=== PATIENT | male | born 1950 | race Two or more races ===

== ENCOUNTER 2020-10-17 01:41 | Inpatient (IN) | payer OTHER, MEDICAID ==
[~2020-10-17] VITALS: Ht 175.3 cm; Wt 118.1 kg
[2020-10-17] VITALS (37 sets, daily range): BP systolic 115–187; BP diastolic 47–101
[2020-10-17] MEDS ORDERED: ADENOSINE 6 MG/2 ML INJ IV ONE ×4 (01:57→02:05)
[2020-10-17] MEDS ORDERED: SODIUM CHLORIDE 0.9% 1,000 ML IV ONE (02:00)
[2020-10-17] MEDS ORDERED: METOPROLOL TARTRATE 1MG/1ML-5ML VIAL IV ONE ×4 (02:09→02:37)
[2020-10-17 02:38] LABS: Basophils # (auto) 0 10 ^3/uL (0-0.2); Basophils % (auto) 0.5 % (0.0-2.0); Eosinophils # (auto) 0.1 10 ^3/uL (0-0.8); Eosinophils % (auto) 2.1 % (0.0-7.0); Hematocrit 45.2 % (41.0-53.0); Hemoglobin 15.5 g/dL (13.5-17.5); Lymphocytes # (auto) 2.1 10 ^3/uL (0.4-5.4); Lymphocytes % (auto) 32.6 % (10.0-50.0); Mean Corpuscular Hemoglobin 31.9 pg (28.0-32.0); Mean Corpuscular Hgb Conc. 34.4 g/dL (32.0-36.0); Mean Corpuscular Volume 92.9 fL (80.0-100.0); Monocytes # (auto) 0.3 10 ^3/uL (0-1.3); Monocytes % (auto) 3.9 % (0.0-12.0); Neutrophils % (auto) 60.9 % (37.0-80.0); Nucleated Red Blood Cells % 0.1 %; Red Blood Cells 4.87 10^6/uL (4.5-5.90); Red Cell Distribution Width 13.8 % (11.8-14.3); White Blood Cell 6.5 10^3/uL (4.4-10.8)
[2020-10-17] MEDS ORDERED: dilTIAZem HCL 50 MG/10 ML VIAL IV ONE ×2 (02:44→03:58)
[2020-10-17] MEDS ORDERED: dilTIAZem 25 MG/5 ML VIAL IV ONE (02:48)
[2020-10-17 02:52] LABS: INR 1.08 (0.9-1.15)
[2020-10-17 03:05] LABS: Alanine Aminotransferase 27 U/L (16-61); Albumin 2.9 g/dL (3.4-5.0); Anion Gap 6 (5-15); Aspartate Aminotransferase 12 U/L (15-37); BUN/Creatinine Ratio 16.5; Blood Urea Nitrogen 20 mg/dL (7-18); Calcium 8.2 mg/dL (8.5-10.1); Carbon Dioxide 30 mmol/L (21-32); Chloride 105 mmol/L (98-107); GFR African American 77 mL/min; GFR Non-African American 63 mL/min; Glucose 242 mg/dL (74-106); Magnesium 1.5 mg/dL (1.6-2.6); Potassium 3.4 mmol/L (3.5-5.1); Sodium 141 mmol/L (136-145)
[2020-10-17 03:10] LABS: Alkaline Phosphatase 105 U/L (45-117); Bilirubin, Total 0.4 mg/dL (0.2-1.0); Total Protein 6.6 g/dL (6.4-8.2)
[2020-10-17] MEDS ORDERED: dilTIAZem 125mg/125ml BAG KIT 125 ML IV ONE (03:59)
[2020-10-17] MEDS: dilTIAZem 125mg/125ml BAG KIT 125 ML IV SCH (04:09)
[2020-10-17] MEDS ORDERED: MORPHINE SULFATE INJECTION 2 MG/ML SYRG IV PRN (04:30)
[2020-10-17] MEDS ORDERED: ONDANSETRON HCL 4 MG/2 ML VIAL IV PRN (04:30)
[2020-10-17] MEDS ORDERED: TEMAZEPAM 15 MG CAP PO PRN (04:30)
[2020-10-17] MEDS ORDERED: DEXTROSE (50%) 50ML SYRG IV PRN (04:30)
[2020-10-17] MEDS ORDERED: NITROGLYCERIN 0.4 MG SL TAB SL PRN (04:30)
[2020-10-17] MEDS ORDERED: IOHEXOL 350 MG/ML 100ML IJ ONE (04:32)
[2020-10-17] MEDS: POTASSIUM CHL 20MEQ/100ML 100 ML IV SCH ×2 (05:30→08:42)
[2020-10-17] MEDS: MAGNESIUM SULFATE 1GM/100ML 100 ML IV SCH ×2 (05:30→06:34)
[2020-10-17] MEDS ORDERED: LABETALOL HCL 5 MG/ML 4ML SYRINGE IV ONE (06:30)
[2020-10-17] MEDS ORDERED: ALBUTEROL SULF 2.5 MG/0.5ML(0.5%) NEB SOLN NEB PRN (07:30)
[2020-10-17] MEDS: ACCU-CHEK COMFORT CURVE STRIP VI SCH ×4 (07:34→21:28)
[2020-10-17] MEDS: InsuLIN REG 1unit/0.01ml Soln (100units/ml) SC SCH ×4 (07:35→21:36)
[2020-10-17] MEDS ORDERED: cefTRIAXone 1GM/50ML D5W 50 ML IV SCH (09:00)
[2020-10-17] MEDS ORDERED: VALSARTAN 80 MG TAB PO SCH (10:00)
[2020-10-17] MEDS ORDERED: AZITHROMYCIN 500MG/ 250ML 250 ML IV SCH (10:00)
[2020-10-17] MEDS ORDERED: DexAMETHasone SOD PHOS 10MG/1ML VIAL INJ IV SCH (10:00)
[2020-10-17] MEDS ORDERED: TRIAMTERENE/HCTZ 37.5/25 MG CAP/TAB PO SCH (10:00)
[2020-10-17] MEDS ORDERED: ENOXAPARIN SOD 40 MG/0.4 ML SYRINGE SC SCH (10:00)
[2020-10-17] MEDS: METOPROLOL TARTRATE 50 MG TAB PO SCH ×2 (10:24→21:02)
[2020-10-17] MEDS: ASPirin 81 mg TAB PO SCH (10:24)
[2020-10-17] MEDS: FAMOTIDINE 20 MG TAB PO SCH ×2 (10:24→21:03)
[2020-10-17] MEDS ORDERED: ASPI-543 PO (10:49)
[2020-10-17] MEDS ORDERED: SIMV-13 PO (10:49)
[2020-10-17] MEDS ORDERED: METF-370 PO (10:49)
[2020-10-17] MEDS ORDERED: METO-158 PO (10:49)
[2020-10-17] MEDS ORDERED: GABA100C9 PO (10:49)
[2020-10-17] MEDS ORDERED: ALBU2TAB4 IN (10:49)
[2020-10-17] MEDS ORDERED: VALS320T15 PO (10:49)
[2020-10-17] MEDS ORDERED: ALOG1TAB2 PO (10:49)
[2020-10-17] MEDS: PIPERACILLIN-TAZO 4.5GM 100 ML IV SCH ×2 (14:55→21:01)
[2020-10-17] MEDS: ATORVASTATIN 20 MG TAB PO SCH (21:02)
[2020-10-17] MEDS: APIXABAN 5 MG TAB PO SCH (21:02)
[2020-10-17] MEDS: INSULIN LANTUS (GLARGINE) 1 /0.01ml (100units/ml) SC SCH (21:29)
[2020-10-18] VITALS (16 sets, daily range): BP systolic 115–159; BP diastolic 68–92
[2020-10-18 05:07] LABS: Basophils # (auto) 0 10 ^3/uL (0-0.2); Basophils % (auto) 0.3 % (0.0-2.0); Eosinophils # (auto) 0 10 ^3/uL (0-0.8); Eosinophils % (auto) 0.1 % (0.0-7.0); Hematocrit 41.6 % (41.0-53.0); Hemoglobin 14.6 g/dL (13.5-17.5); Lymphocytes # (auto) 0.8 10 ^3/uL (0.4-5.4); Lymphocytes % (auto) 5.3 % (10.0-50.0); Mean Corpuscular Hemoglobin 32.5 pg (28.0-32.0); Mean Corpuscular Hgb Conc. 35.1 g/dL (32.0-36.0); Mean Corpuscular Volume 92.4 fL (80.0-100.0); Monocytes # (auto) 0.7 10 ^3/uL (0-1.3); Monocytes % (auto) 4.6 % (0.0-12.0); Neutrophils # (auto) 13.4 10 ^3/uL (1.6-8.6); Neutrophils % (auto) 89.7 % (37.0-80.0); Red Cell Distribution Width 13.8 % (11.8-14.3)
[2020-10-18 05:27] LABS: BUN/Creatinine Ratio 21.3; Potassium 4.2 mmol/L (3.5-5.1)
[2020-10-18] MEDS: PIPERACILLIN-TAZO 4.5GM 100 ML IV SCH ×3 (06:22→21:53)
[2020-10-18] MEDS: ACCU-CHEK COMFORT CURVE STRIP VI SCH ×4 (06:27→21:54)
[2020-10-18] MEDS: InsuLIN REG 1unit/0.01ml Soln (100units/ml) SC SCH ×4 (06:28→22:29)
[2020-10-18] MEDS: dilTIAZem 125mg/125ml BAG KIT 125 ML IV SCH (07:36)
[2020-10-18] MEDS: METOPROLOL TARTRATE 50 MG TAB PO SCH ×2 (08:53→22:30)
[2020-10-18] MEDS: FAMOTIDINE 20 MG TAB PO SCH (08:53)
[2020-10-18] MEDS: ASPirin 81 mg TAB PO SCH (08:53)
[2020-10-18] MEDS: APIXABAN 5 MG TAB PO SCH ×2 (11:12→21:53)
[2020-10-18] MEDS: ACETAMINOPHEN 325 MG TAB PO PRN (17:13)
[2020-10-18] MEDS: ATORVASTATIN 20 MG TAB PO SCH (21:53)
[2020-10-18] MEDS: INSULIN LANTUS (GLARGINE) 1 /0.01ml (100units/ml) SC SCH (22:28)
[2020-10-19 05:00] VITALS: BP 118/81
[2020-10-19] MEDS: PIPERACILLIN-TAZO 4.5GM 100 ML IV SCH ×2 (06:09→17:52)
[2020-10-19] MEDS: ACCU-CHEK COMFORT CURVE STRIP VI SCH ×4 (06:51→22:23)
[2020-10-19] MEDS: InsuLIN REG 1unit/0.01ml Soln (100units/ml) SC SCH ×4 (06:55→22:24)
[2020-10-19 09:00] VITALS: BP 134/67
[2020-10-19] MEDS: ASPirin 81 mg TAB PO SCH (10:13)
[2020-10-19] MEDS: APIXABAN 5 MG TAB PO SCH ×2 (10:14→22:22)
[2020-10-19] MEDS: METOPROLOL TARTRATE 50 MG TAB PO SCH ×2 (10:14→22:23)
[2020-10-19] MEDS ORDERED: DOXYCYCLINE 100 MG TAB/CAP PO ONE (10:15)
[2020-10-19 13:00] VITALS: BP 139/78
[2020-10-19 16:26] VITALS: BP 138/94
[2020-10-19] MEDS: ACETAMINOPHEN 325 MG TAB PO PRN (20:06)
[2020-10-19 22:00] VITALS: BP 167/79
[2020-10-19] MEDS: ATORVASTATIN 20 MG TAB PO SCH (22:22)
[2020-10-19] MEDS: DOXYCYCLINE 100 MG TAB/CAP PO SCH (22:22)
[2020-10-19] MEDS: MUPIROCIN 2% OINT 15gm or 22gm EACHNOSTRI SCH (22:22)
[2020-10-19] MEDS: INSULIN LANTUS (GLARGINE) 1 /0.01ml (100units/ml) SC SCH (22:24)
[2020-10-19] MEDS: hydrALAZINE HCL 20 MG/ML VL IV PRN (22:42)
[2020-10-20] MEDS: HYDROcodone-ACET 5/325MG TAB PO PRN (02:31)
[2020-10-20 05:00] VITALS: BP 140/71
[2020-10-20] MEDS: ACCU-CHEK COMFORT CURVE STRIP VI SCH ×4 (06:30→22:00)
[2020-10-20] MEDS: InsuLIN REG 1unit/0.01ml Soln (100units/ml) SC SCH ×4 (06:33→22:37)
[2020-10-20 07:32] VITALS: BP 140/71
[2020-10-20 09:00] VITALS: BP 138/63
[2020-10-20] MEDS: ASPirin 81 mg TAB PO SCH (10:13)
[2020-10-20] MEDS: METOPROLOL TARTRATE 50 MG TAB PO SCH ×2 (10:13→22:34)
[2020-10-20] MEDS: DOXYCYCLINE 100 MG TAB/CAP PO SCH ×2 (10:13→22:35)
[2020-10-20] MEDS: APIXABAN 5 MG TAB PO SCH ×2 (10:13→22:36)
[2020-10-20] MEDS: MUPIROCIN 2% OINT 15gm or 22gm EACHNOSTRI SCH ×2 (11:38→22:36)
[2020-10-20 13:00] VITALS: BP 143/73
[2020-10-20] MEDS ORDERED: AZITHROMYCIN 250 MG TAB PO ONE (15:45)
[2020-10-20 17:00] VITALS: BP 144/83
[2020-10-20 21:48] VITALS: BP 140/98
[2020-10-20] MEDS: ATORVASTATIN 20 MG TAB PO SCH (22:34)
[2020-10-20] MEDS: INSULIN LANTUS (GLARGINE) 1 /0.01ml (100units/ml) SC SCH (22:37)
[2020-10-21] MEDS: HYDROcodone-ACET 5/325MG TAB PO PRN ×2 (00:43→23:11)
[2020-10-21] MEDS: hydrALAZINE HCL 20 MG/ML VL IV PRN (04:15)
[2020-10-21 04:40] VITALS: BP 160/75
[2020-10-21] MEDS: ACCU-CHEK COMFORT CURVE STRIP VI SCH ×4 (06:12→22:19)
[2020-10-21] MEDS: InsuLIN REG 1unit/0.01ml Soln (100units/ml) SC SCH ×4 (06:13→22:18)
[2020-10-21 07:28] LABS: Basophils # (auto) 0 10 ^3/uL (0-0.2); Basophils % (auto) 0.5 % (0.0-2.0); Eosinophils # (auto) 0.6 10 ^3/uL (0-0.8); Hemoglobin 15.9 g/dL (13.5-17.5); Lymphocytes # (auto) 1.8 10 ^3/uL (0.4-5.4); Lymphocytes % (auto) 23.3 % (10.0-50.0); Mean Corpuscular Hemoglobin 32.5 pg (28.0-32.0); Mean Corpuscular Hgb Conc. 35.3 g/dL (32.0-36.0); Monocytes # (auto) 0.7 10 ^3/uL (0-1.3); Monocytes % (auto) 8.7 % (0.0-12.0); Neutrophils # (auto) 4.5 10 ^3/uL (1.6-8.6); Neutrophils % (auto) 59.5 % (37.0-80.0); Nucleated Red Blood Cells % 0.1 %; Red Blood Cells 4.89 10^6/uL (4.5-5.90); Red Cell Distribution Width 13.7 % (11.8-14.3); White Blood Cell 7.5 10^3/uL (4.4-10.8)
[2020-10-21 07:54] LABS: Potassium 3.6 mmol/L (3.5-5.1)
[2020-10-21 08:02] LABS: Albumin 2.9 g/dL (3.4-5.0); BUN/Creatinine Ratio 25.8; Bilirubin, Total 0.4 mg/dL (0.2-1.0); Calcium 8.9 mg/dL (8.5-10.1); Total Protein 6.5 g/dL (6.4-8.2)
[2020-10-21 09:00] VITALS: BP 136/82
[2020-10-21] MEDS ORDERED: AZITHROMYCIN 250 MG TAB PO SCH (10:00)
[2020-10-21] MEDS: DOXYCYCLINE 100 MG TAB/CAP PO SCH (10:36)
[2020-10-21] MEDS: ASPirin 81 mg TAB PO SCH (10:36)
[2020-10-21] MEDS: APIXABAN 5 MG TAB PO SCH ×2 (10:36→22:03)
[2020-10-21] MEDS: MUPIROCIN 2% OINT 15gm or 22gm EACHNOSTRI SCH ×2 (10:36→22:00)
[2020-10-21] MEDS: METOPROLOL TARTRATE 50 MG TAB PO SCH ×2 (10:37→22:03)
[2020-10-21 13:00] VITALS: BP 149/112
[2020-10-21 17:00] VITALS: BP 134/78
[2020-10-21] MEDS: ATORVASTATIN 20 MG TAB PO SCH (22:03)
[2020-10-21] MEDS: AMIODARONE HCL 200 MG TAB PO SCH (22:04)
[2020-10-21] MEDS: INSULIN LANTUS (GLARGINE) 1 /0.01ml (100units/ml) SC SCH (22:18)
[2020-10-21 23:00] VITALS: BP 134/85
[2020-10-22 05:00] VITALS: BP 148/73
[2020-10-22] MEDS: InsuLIN REG 1unit/0.01ml Soln (100units/ml) SC SCH ×2 (06:36→12:20)
[2020-10-22] MEDS: ACCU-CHEK COMFORT CURVE STRIP VI SCH ×2 (06:42→12:18)
[2020-10-22 06:54] LABS: Basophils # (auto) 0 10 ^3/uL (0-0.2); Basophils % (auto) 0.4 % (0.0-2.0); Eosinophils # (auto) 0.5 10 ^3/uL (0-0.8); Eosinophils % (auto) 5.8 % (0.0-7.0); Hematocrit 43.3 % (41.0-53.0); Hemoglobin 15.4 g/dL (13.5-17.5); Lymphocytes # (auto) 1.9 10 ^3/uL (0.4-5.4); Lymphocytes % (auto) 21.9 % (10.0-50.0); Mean Corpuscular Hemoglobin 32.6 pg (28.0-32.0); Mean Corpuscular Hgb Conc. 35.6 g/dL (32.0-36.0); Mean Corpuscular Volume 91.6 fL (80.0-100.0); Monocytes # (auto) 0.7 10 ^3/uL (0-1.3); Monocytes % (auto) 7.7 % (0.0-12.0); Neutrophils # (auto) 5.5 10 ^3/uL (1.6-8.6); Neutrophils % (auto) 64.2 % (37.0-80.0); Nucleated Red Blood Cells % 0.2 %; Red Blood Cells 4.73 10^6/uL (4.5-5.90); Red Cell Distribution Width 13.3 % (11.8-14.3); White Blood Cell 8.5 10^3/uL (4.4-10.8)
[2020-10-22 07:16] LABS: Potassium 3.9 mmol/L (3.5-5.1)
[2020-10-22 07:21] LABS: BUN/Creatinine Ratio 28.4; Calcium 8.7 mg/dL (8.5-10.1)
[2020-10-22 09:00] VITALS: BP 130/64
[2020-10-22] MEDS ORDERED: DOXYCYCLINE 100 MG TAB/CAP PO SCH (10:15)
[2020-10-22] MEDS ORDERED: DOX100T PO (10:19)
[2020-10-22] MEDS ORDERED: AMIO200T4 PO (10:19)
[2020-10-22] MEDS ORDERED: ASPI1CHW15 PO (10:19)
[2020-10-22] MEDS ORDERED: APIX5TAB PO (10:19)
[2020-10-22] MEDS: ASPirin 81 mg TAB PO SCH (10:24)
[2020-10-22] MEDS: AMIODARONE HCL 200 MG TAB PO SCH (10:24)
[2020-10-22] MEDS: APIXABAN 5 MG TAB PO SCH (10:24)
[2020-10-22] MEDS: METOPROLOL TARTRATE 50 MG TAB PO SCH (10:25)
[2020-10-22] MEDS: MUPIROCIN 2% OINT 15gm or 22gm EACHNOSTRI SCH (12:04)
[2020-10-22 13:14] VITALS: BP 126/76
== END 2020-10-22 14:35 | disposition home or self-care (01) | DRG 177 ==
LOC: EDBD 01:41 → ER 01:44 → TELE 04:30 → DOU IN ICU 09:07 → TELE-CENTR 10-18 12:03
PROVIDERS: ADMIT Nurse Practitioner; ATTEND Internal Medicine
DX: J69.0 Pneumonitis due to inhalation of food and vomit (principal); J96.01 Acute respiratory failure with hypoxia; N17.0 Acute kidney failure with tubular necrosis; I47.1 Supraventricular tachycardia; E44.0 Moderate protein-calorie malnutrition; D68.69 Other thrombophilia; E11.22 Type 2 diabetes mellitus with diabetic chronic kidney disease; E66.01 Morbid (severe) obesity due to excess calories; E87.6 Hypokalemia; I48.0 Paroxysmal atrial fibrillation; Z80.0 Family history of malignant neoplasm of digestive organs; N18.9 Chronic kidney disease, unspecified; E78.5 Hyperlipidemia, unspecified; Z20.822 Contact with and (suspected) exposure to COVID-19; Z88.5 Allergy status to narcotic agent; B95.62 Methicillin resistant Staphylococcus aureus infection as the cause of diseases classified elsewhere; Z68.38 Body mass index [BMI] 38.0-38.9, adult; E87.8 Other disorders of electrolyte and fluid balance, not elsewhere classified; E11.21 Type 2 diabetes mellitus with diabetic nephropathy
CPT/HCPCS: 36415; 36600; 71045; 71275; 80048; 80053; 82805; 82962; 83036; 83605; 83735; 84443; 84484; 85025; 85049; 85379; 85610; 87045; 87081; 87426; 87427; 93005; 93306; 96361; 96365; 96375; 99291; G0378; J0153; J0696; J1100; J1815; J2543; J3480; J3490

== ENCOUNTER 2021-02-08 22:58 | Inpatient (IN) | payer OTHER, MEDICAID ==
[~2021-02-08] VITALS: Ht 175.3 cm; Wt 108.9 kg
[~2021-02-08 22:58] MED LIST: ALBU2TAB4 IN; ALOG1TAB2 PO; AMIO200T4 PO; APIX5TAB PO; ASPI-543 PO; ASPI1CHW15 PO; DOX100T PO; GABA100C9 PO; METF-370 PO; METO-158 PO; SIMV-13 PO; VALS320T15 PO
[2021-02-09 00:02] LABS: Basophils # (auto) 0.1 10 ^3/uL (0-0.2); Basophils % (auto) 0.9 % (0.0-2.0); Eosinophils # (auto) 0.7 10 ^3/uL (0-0.8); Eosinophils % (auto) 6.7 % (0.0-7.0); Hematocrit 45.8 % (41.0-53.0); Hemoglobin 15.7 g/dL (13.5-17.5); Lymphocytes # (auto) 2.7 10 ^3/uL (0.4-5.4); Mean Corpuscular Hemoglobin 32.5 pg (28.0-32.0); Mean Corpuscular Hgb Conc. 34.3 g/dL (32.0-36.0); Mean Corpuscular Volume 94.9 fL (80.0-100.0); Monocytes # (auto) 0.7 10 ^3/uL (0-1.3); Monocytes % (auto) 7.5 % (0.0-12.0); Neutrophils # (auto) 5.8 10 ^3/uL (1.6-8.6); Neutrophils % (auto) 57.9 % (37.0-80.0); Nucleated Red Blood Cells % 0.1 %; Red Blood Cells 4.83 10^6/uL (4.5-5.90); Red Cell Distribution Width 14.3 % (11.8-14.3); White Blood Cell 9.9 10^3/uL (4.4-10.8)
[2021-02-09 00:20] LABS: Albumin 3.3 g/dL (3.4-5.0); Anion Gap 8 (5-15); BUN/Creatinine Ratio 17.6; Blood Urea Nitrogen 24 mg/dL (7-18); Calcium 9.6 mg/dL (8.5-10.1); Carbon Dioxide 28 mmol/L (21-32); Chloride 104 mmol/L (98-107); GFR African American 67 mL/min; GFR Non-African American 55 mL/min; Glucose 253 mg/dL (74-106); Sodium 140 mmol/L (136-145)
[2021-02-09 00:25] LABS: Alanine Aminotransferase 34 U/L (16-61); Alkaline Phosphatase 108 U/L (45-117); Aspartate Aminotransferase 14 U/L (15-37); Bilirubin, Total 0.4 mg/dL (0.2-1.0); Total Protein 7.5 g/dL (6.4-8.2)
[2021-02-09] MEDS: METOPROLOL TARTRATE 1MG/1ML-5ML VIAL IV SCH ×3 (02:15→02:54)
[2021-02-09] MEDS ORDERED: SODIUM CHLORIDE 0.9% 1,000 ML IV ONE (02:15)
[2021-02-09] MEDS ORDERED: DEXTROSE (50%) 50ML SYRG IV PRN (03:15)
[2021-02-09] MEDS ORDERED: SOD CHL 0.45% 1,000 ML IV ONE (03:15)
[2021-02-09] MEDS ORDERED: DOCUSATE SOD 100 MG CAP PO PRN (03:15)
[2021-02-09] MEDS ORDERED: ONDANSETRON HCL 4 MG/2 ML VIAL IV PRN (03:15)
[2021-02-09] MEDS ORDERED: ACETAMINOPHEN 325 MG TAB PO PRN (03:15)
[2021-02-09] MEDS ORDERED: METOPROLOL TARTRATE 25 MG TAB PO ONE (03:45)
[2021-02-09] MEDS ORDERED: MORPHINE SULFATE INJECTION 2 MG/ML SYRG IV PRN (05:30)
[2021-02-09] MEDS ORDERED: NITROGLYCERIN 0.4 MG SL TAB SL PRN (05:30)
[2021-02-09] MEDS ORDERED: dilTIAZem HCL 60 MG TAB PO SCH (06:00)
[2021-02-09 06:03] LABS: Basophils # (auto) 0.1 10 ^3/uL (0-0.2); Basophils % (auto) 0.9 % (0.0-2.0); Eosinophils # (auto) 0.5 10 ^3/uL (0-0.8); Eosinophils % (auto) 5.8 % (0.0-7.0); Hematocrit 41.9 % (41.0-53.0); Hemoglobin 14.3 g/dL (13.5-17.5); Lymphocytes # (auto) 2.3 10 ^3/uL (0.4-5.4); Lymphocytes % (auto) 28.5 % (10.0-50.0); Mean Corpuscular Hemoglobin 32.4 pg (28.0-32.0); Mean Corpuscular Hgb Conc. 34.1 g/dL (32.0-36.0); Mean Corpuscular Volume 95.1 fL (80.0-100.0); Monocytes # (auto) 0.6 10 ^3/uL (0-1.3); Monocytes % (auto) 7.7 % (0.0-12.0); Neutrophils # (auto) 4.6 10 ^3/uL (1.6-8.6); Neutrophils % (auto) 57.1 % (37.0-80.0); Nucleated Red Blood Cells % 0.1 %; Red Blood Cells 4.41 10^6/uL (4.5-5.90); Red Cell Distribution Width 13.9 % (11.8-14.3); White Blood Cell 8.1 10^3/uL (4.4-10.8)
[2021-02-09 06:25] LABS: Albumin 2.8 g/dL (3.4-5.0); Calcium 8.8 mg/dL (8.5-10.1)
[2021-02-09 06:28] LABS: BUN/Creatinine Ratio 21.1; Bilirubin, Total 0.4 mg/dL (0.2-1.0); Total Protein 6.4 g/dL (6.4-8.2)
[2021-02-09] MEDS ORDERED: ACCU-CHEK COMFORT CURVE STRIP VI SCH (07:00)
[2021-02-09] MEDS ORDERED: InsuLIN REG 1unit/0.01ml Soln (100units/ml) SC SCH ×2 (07:00→22:00)
[2021-02-09 07:25] VITALS: BP 115/94
[2021-02-09 07:30] LABS: Urine Bacteria NONE SEEN /hpf (None Seen); Urine Blood Negative /uL (Negative); Urine Hyaline Cast FEW /lpf (0 - 2); Urine Mucus FEW (None Seen); Urine Specific Gravity 1.024 (1.001-1.035); Urine WBC 2 /hpf (0 - 3)
[2021-02-09] MEDS ORDERED: METOPROLOL TARTRATE 25 MG TAB PO SCH (10:00)
[2021-02-09] MEDS ORDERED: ASPirin 81 mg TAB PO SCH (10:00)
[2021-02-09] MEDS ORDERED: MULTIPLE VITAMIN TAB PO SCH (10:00)
[2021-02-09] MEDS ORDERED: ASCORBIC ACID 500 MG TAB PO SCH (10:00)
[2021-02-09] MEDS ORDERED: ZINC SULFATE 220mg CAP or TAB PO SCH (10:00)
[2021-02-09] MEDS ORDERED: ATORVASTATIN 20 MG TAB PO SCH (22:00)
== END 2021-02-09 09:30 | disposition left against medical advice (07) | DRG 313 ==
LOC: ER 22:58 → TELE 02-09 06:26
PROVIDERS: ADMIT Nurse Practitioner Family; ATTEND Nurse Practitioner Family
DX: R07.89 Other chest pain (principal); I49.9 Cardiac arrhythmia, unspecified; I48.0 Paroxysmal atrial fibrillation; E11.9 Type 2 diabetes mellitus without complications; E78.5 Hyperlipidemia, unspecified; I11.9 Hypertensive heart disease without heart failure; Z53.29 Procedure and treatment not carried out because of patient's decision for other reasons; Z80.0 Family history of malignant neoplasm of digestive organs; G62.9 Polyneuropathy, unspecified; Z88.5 Allergy status to narcotic agent; Z20.822 Contact with and (suspected) exposure to COVID-19; R00.2 Palpitations
CPT/HCPCS: 36415; 71045; 80053; 81001; 83880; 84484; 85025; 87426; 93005; 96361; 96374; 99291; G0378; J1815

== ENCOUNTER 2021-03-08 11:43 | Inpatient (IN) | payer OTHER, MEDICAID ==
[~2021-03-08] VITALS: Ht 177.8 cm; Wt 120.2 kg
[2021-03-08] MEDS ORDERED: SODIUM CHLORIDE 0.9% 500 ML IV ONE (12:15)
[2021-03-08 13:17] LABS: Basophils # (auto) 0.1 10 ^3/uL (0-0.2); Basophils % (auto) 0.6 % (0.0-2.0); Eosinophils # (auto) 0.1 10 ^3/uL (0-0.8); Hematocrit 42.3 % (41.0-53.0); Hemoglobin 14.2 g/dL (13.5-17.5); Lymphocytes # (auto) 1.4 10 ^3/uL (0.4-5.4); Lymphocytes % (auto) 15.3 % (10.0-50.0); Mean Corpuscular Hemoglobin 32.1 pg (28.0-32.0); Mean Corpuscular Hgb Conc. 33.7 g/dL (32.0-36.0); Mean Corpuscular Volume 95.4 fL (80.0-100.0); Monocytes # (auto) 0.4 10 ^3/uL (0-1.3); Monocytes % (auto) 4.3 % (0.0-12.0); Neutrophils % (auto) 78.8 % (37.0-80.0); Nucleated Red Blood Cells % 0.1 %; Red Blood Cells 4.43 10^6/uL (4.5-5.90); Red Cell Distribution Width 13.8 % (11.8-14.3); White Blood Cell 8.8 10^3/uL (4.4-10.8)
[2021-03-08 13:28] LABS: Albumin 2.8 g/dL (3.4-5.0); Calcium 8.5 mg/dL (8.5-10.1); Magnesium 1.8 mg/dL (1.6-2.6); Potassium 3.9 mmol/L (3.5-5.1)
[2021-03-08 13:35] LABS: Bilirubin, Total 0.7 mg/dL (0.2-1.0); Total Protein 6.6 g/dL (6.4-8.2)
[2021-03-08] MEDS ORDERED: NOREPINEPHRINE 8 MG/250ML KIT 250 ML IV SCH (13:45)
[2021-03-08] MEDS ORDERED: NOREPINEPHRINE 8 MG/250ML KIT 250 ML IV ONE (13:49)
[2021-03-08] MEDS ORDERED: ACETAMINOPHEN 325 MG TAB PO PRN (16:00)
[2021-03-08] MEDS ORDERED: DOCUSATE SOD 100 MG CAP PO PRN (16:00)
[2021-03-08] MEDS ORDERED: DEXTROSE (50%) 50ML SYRG IV PRN (16:00)
[2021-03-08] MEDS ORDERED: METOCLOPRAMIDE HCL 5MG/ml INJ 2ml VIAL IV PRN (16:00)
[2021-03-08] MEDS: ACCU-CHEK COMFORT CURVE STRIP VI SCH ×2 (18:53→23:25)
[2021-03-08] MEDS: InsuLIN REG 1unit/0.01ml Soln (100units/ml) SC SCH ×2 (19:01→23:24)
[2021-03-09] MEDS: InsuLIN REG 1unit/0.01ml Soln (100units/ml) SC SCH ×4 (05:52→23:14)
[2021-03-09] MEDS: ACCU-CHEK COMFORT CURVE STRIP VI SCH ×3 (05:55→17:52)
[2021-03-09 11:34] LABS: Urine Bacteria NONE SEEN /hpf (None Seen); Urine Blood Negative /uL (Negative); Urine Hyaline Cast FEW /lpf (0 - 2); Urine Specific Gravity 1.011 (1.001-1.035); Urine WBC 2 /hpf (0 - 3)
[2021-03-09 11:36] LABS: Protein, Urine 19.4 mg/dL (0.0-11.9)
[2021-03-09 11:37] LABS: Amphetamine Screen, Urine NEGATIVE (NEGATIVE); Barbiturate Scree,Urine NEGATIVE (NEGATIVE); Benzodiazephine Screen, Urine NEGATIVE (NEGATIVE); Cannabinoid Screen, Urine NEGATIVE (NEGATIVE); Cocaine Screen, Urine NEGATIVE (NEGATIVE); Opiate Scree,Urine NEGATIVE (NEGATIVE); Phencyclidine Screen, Urine NEGATIVE (NEGATIVE)
[2021-03-09] MEDS: cefTRIAXone 1GM/50ML D5W 50 ML IV SCH (11:47)
[2021-03-09] MEDS: SODIUM CHLORIDE 0.9% 1,000 ML IV SCH (11:47)
[2021-03-09] MEDS: AZITHROMYCIN 500MG/ 250ML 250 ML IV SCH (13:12)
[2021-03-09 13:32] LABS: BUN/Creatinine Ratio 23.4; Calcium 8.7 mg/dL (8.5-10.1); Potassium 3.7 mmol/L (3.5-5.1)
[2021-03-09 14:07] LABS: Basophils # (auto) 0.1 10 ^3/uL (0-0.2); Basophils % (auto) 0.9 % (0.0-2.0); Eosinophils # (auto) 0.4 10 ^3/uL (0-0.8); Eosinophils % (auto) 6.3 % (0.0-7.0); Hematocrit 38.6 % (41.0-53.0); Hemoglobin 13.3 g/dL (13.5-17.5); Lymphocytes # (auto) 1.4 10 ^3/uL (0.4-5.4); Lymphocytes % (auto) 22.2 % (10.0-50.0); Mean Corpuscular Hemoglobin 32.7 pg (28.0-32.0); Mean Corpuscular Hgb Conc. 34.6 g/dL (32.0-36.0); Mean Corpuscular Volume 94.6 fL (80.0-100.0); Monocytes # (auto) 0.4 10 ^3/uL (0-1.3); Monocytes % (auto) 6.7 % (0.0-12.0); Neutrophils % (auto) 63.9 % (37.0-80.0); Red Blood Cells 4.08 10^6/uL (4.5-5.90); Red Cell Distribution Width 13.5 % (11.8-14.3); White Blood Cell 6.3 10^3/uL (4.4-10.8)
[2021-03-09 17:17] VITALS: BP 119/76
[2021-03-09 17:37] VITALS: BP 119/76
[2021-03-09] MEDS ORDERED: MORP15TA PO (18:46)
[2021-03-09] MEDS ORDERED: TRIATAB3 PO (18:46)
[2021-03-09] MEDS ORDERED: ALBU2TAB4 IN (18:46)
[2021-03-09] MEDS ORDERED: BECL80AE11 IN (18:46)
[2021-03-09] MEDS ORDERED: ARIP2TAB PO (18:49)
[2021-03-09] MEDS ORDERED: APIX5TAB PO (18:49)
[2021-03-09] MEDS ORDERED: ROSU20TA14 PO (18:49)
[2021-03-09 20:00] VITALS: BP 129/76
[2021-03-09 22:00] VITALS: BP 129/76
[2021-03-10] MEDS: ACCU-CHEK COMFORT CURVE STRIP VI SCH ×5 (00:07→23:09)
[2021-03-10] MEDS: SODIUM CHLORIDE 0.9% 1,000 ML IV SCH ×2 (00:08→13:55)
[2021-03-10 05:00] VITALS: BP 142/83
[2021-03-10] MEDS: InsuLIN REG 1unit/0.01ml Soln (100units/ml) SC SCH ×4 (05:31→23:08)
[2021-03-10 05:37] LABS: Basophils # (auto) 0.1 10 ^3/uL (0-0.2); Basophils % (auto) 0.7 % (0.0-2.0); Eosinophils # (auto) 0.4 10 ^3/uL (0-0.8); Eosinophils % (auto) 6.4 % (0.0-7.0); Hematocrit 38.6 % (41.0-53.0); Hemoglobin 13.2 g/dL (13.5-17.5); Lymphocytes # (auto) 1.6 10 ^3/uL (0.4-5.4); Lymphocytes % (auto) 22.5 % (10.0-50.0); Mean Corpuscular Hemoglobin 32.2 pg (28.0-32.0); Mean Corpuscular Hgb Conc. 34.3 g/dL (32.0-36.0); Mean Corpuscular Volume 93.9 fL (80.0-100.0); Monocytes # (auto) 0.5 10 ^3/uL (0-1.3); Monocytes % (auto) 7.7 % (0.0-12.0); Neutrophils # (auto) 4.3 10 ^3/uL (1.6-8.6); Neutrophils % (auto) 62.7 % (37.0-80.0); Nucleated Red Blood Cells % 0.1 %; Red Blood Cells 4.11 10^6/uL (4.5-5.90); Red Cell Distribution Width 13.3 % (11.8-14.3); White Blood Cell 6.9 10^3/uL (4.4-10.8)
[2021-03-10 06:02] LABS: Calcium 8.4 mg/dL (8.5-10.1); Potassium 3.7 mmol/L (3.5-5.1)
[2021-03-10 06:05] LABS: BUN/Creatinine Ratio 24.6; Bilirubin, Total 0.5 mg/dL (0.2-1.0); Total Protein 6.4 g/dL (6.4-8.2)
[2021-03-10] MEDS: cefTRIAXone 1GM/50ML D5W 50 ML IV SCH (08:37)
[2021-03-10] MEDS: AZITHROMYCIN 500MG/ 250ML 250 ML IV SCH (08:38)
[2021-03-10 08:56] VITALS: BP 135/77
[2021-03-10 12:53] VITALS: BP 107/66
[2021-03-10] MEDS ORDERED: VALS1TAB59 PO (15:41)
[2021-03-10] MEDS ORDERED: ROSU1TAB14 PO (15:41)
[2021-03-10] MEDS ORDERED: ALBU108A5 INH (15:41)
[2021-03-10] MEDS ORDERED: ARIP10TA30 PO (15:41)
[2021-03-10] MEDS ORDERED: TAMS0.4C36 PO (15:41)
[2021-03-10] MEDS ORDERED: MET50T PO (15:41)
[2021-03-10] MEDS ORDERED: ASPI-325 PO (15:41)
[2021-03-10] MEDS ORDERED: ALBUTEROL SULF 2.5 MG/0.5ML(0.5%) NEB SOLN NEB PRN (15:45)
[2021-03-10 15:50] VITALS: BP 107/66
[2021-03-10] MEDS ORDERED: BISA10SU52 PR (16:26)
[2021-03-10 17:00] VITALS: BP 109/69
[2021-03-10] MEDS: TAMSULOSIN HYDROCHLORIDE 0.4 MG CAP PO SCH (18:09)
[2021-03-10] MEDS ORDERED: ATORVASTATIN 20 MG TAB PO SCH (22:00)
[2021-03-10 22:22] VITALS: BP 132/82
[2021-03-11] MEDS ORDERED: LORazepam 2MG/ML-1ML VIAL IV ONE (00:30)
[2021-03-11] MEDS: SODIUM CHLORIDE 0.9% 1,000 ML IV SCH (03:23)
[2021-03-11 05:00] VITALS: BP 137/80
[2021-03-11] MEDS: ACCU-CHEK COMFORT CURVE STRIP VI SCH ×3 (05:40→18:39)
[2021-03-11] MEDS: InsuLIN REG 1unit/0.01ml Soln (100units/ml) SC SCH ×3 (05:57→18:46)
[2021-03-11] MEDS ORDERED: DULA1INJ SC (06:05)
[2021-03-11 07:22] LABS: Basophils # (auto) 0.1 10 ^3/uL (0-0.2); Basophils % (auto) 1.2 % (0.0-2.0); Eosinophils # (auto) 0.3 10 ^3/uL (0-0.8); Eosinophils % (auto) 5.1 % (0.0-7.0); Hematocrit 37.9 % (41.0-53.0); Hemoglobin 13.2 g/dL (13.5-17.5); Lymphocytes # (auto) 1.6 10 ^3/uL (0.4-5.4); Lymphocytes % (auto) 24.6 % (10.0-50.0); Mean Corpuscular Hemoglobin 32.6 pg (28.0-32.0); Mean Corpuscular Hgb Conc. 34.9 g/dL (32.0-36.0); Mean Corpuscular Volume 93.5 fL (80.0-100.0); Monocytes # (auto) 0.5 10 ^3/uL (0-1.3); Monocytes % (auto) 7.7 % (0.0-12.0); Neutrophils % (auto) 61.4 % (37.0-80.0); Red Blood Cells 4.05 10^6/uL (4.5-5.90); Red Cell Distribution Width 13.6 % (11.8-14.3); White Blood Cell 6.5 10^3/uL (4.4-10.8)
[2021-03-11 07:30] LABS: Calcium 8.5 mg/dL (8.5-10.1); Potassium 3.9 mmol/L (3.5-5.1)
[2021-03-11 07:35] LABS: BUN/Creatinine Ratio 18.8; Bilirubin, Total 0.4 mg/dL (0.2-1.0); Total Protein 6.4 g/dL (6.4-8.2)
[2021-03-11 09:00] VITALS: BP 141/96
[2021-03-11] MEDS: AZITHROMYCIN 500MG/ 250ML 250 ML IV SCH (09:17)
[2021-03-11] MEDS: cefTRIAXone 1GM/50ML D5W 50 ML IV SCH (09:17)
[2021-03-11] MEDS ORDERED: ASPirin-EC 81 mg tab PO SCH (10:00)
[2021-03-11] MEDS ORDERED: ARIPIPRAZOLE 10 MG PO SCH (10:00)
[2021-03-11 13:00] VITALS: BP 120/85
[2021-03-11 13:05] LABS: Hepatitis C Antibody Negative (Negative)
[2021-03-11 17:00] VITALS: BP 153/81
[2021-03-11] MEDS: TAMSULOSIN HYDROCHLORIDE 0.4 MG CAP PO SCH (18:39)
[2021-03-11] MEDS ORDERED: METO25TA5 PO (20:58)
== END 2021-03-11 22:15 | disposition left against medical advice (07) | DRG 314 ==
LOC: EDBD 11:43 → ER 11:43 → EDUNIT# 11:43 → TELE 15:58 → TELE-CENTR 03-09 16:34
PROVIDERS: ADMIT Hospitalist; ATTEND Internal Medicine
PROC: 05HC33Z Insertion of Infusion Device into Left Basilic Vein, Percutaneous Approach (ICD-10-PCS; principal; 2021-03-08)
PROC: B54NZZA Ultrasonography of Left Upper Extremity Veins, Guidance (ICD-10-PCS; 2021-03-08)
DX: I95.0 Idiopathic hypotension (principal); J18.9 Pneumonia, unspecified organism; N17.0 Acute kidney failure with tubular necrosis; R57.1 Hypovolemic shock; I48.91 Unspecified atrial fibrillation; N18.30 Chronic kidney disease, stage 3 unspecified; F32.A Depression, unspecified; N40.0 Benign prostatic hyperplasia without lower urinary tract symptoms; E11.65 Type 2 diabetes mellitus with hyperglycemia; E66.01 Morbid (severe) obesity due to excess calories; E78.5 Hyperlipidemia, unspecified; E11.22 Type 2 diabetes mellitus with diabetic chronic kidney disease; Z53.29 Procedure and treatment not carried out because of patient's decision for other reasons; I25.10 Atherosclerotic heart disease of native coronary artery without angina pectoris; I12.9 Hypertensive chronic kidney disease with stage 1 through stage 4 chronic kidney disease, or unspecified chronic kidney disease; I45.10 Unspecified right bundle-branch block; Z20.822 Contact with and (suspected) exposure to COVID-19; Z68.37 Body mass index [BMI] 37.0-37.9, adult; Z88.5 Allergy status to narcotic agent; Z80.0 Family history of malignant neoplasm of digestive organs
CPT/HCPCS: 36415; 70450; 70551; 71045; 76775; 80048; 80053; 80307; 81001; 82306; 82570; 82962; 83036; 83735; 83880; 83935; 83970; 84100; 84156; 84300; 84484; 85025; 85379; 86803; 87040; 87340; 87426; 93005; 96361; 96365; 96366; 96367; 96375; 99291; G0378; J0696; J1815